=== PATIENT | female | born 1930 | race Caucasian/White ===

== ENCOUNTER 2017-05-17 20:14 | Emergency (ER) | payer OTHER, MEDICARE ==
[~2017-05-17] VITALS: Ht 157.5 cm; Wt 76.7 kg
[~2017-05-17 20:14] MED LIST: ALPRAZOLAM0.25 M1 PO; AMLODIPINE BES2.5 M1 PO; CALTRATE 600 +1 EACH PO; CHILDREN'S ASPI81 M1 PO; CIPRO 500MG TA500 MG PO; CORTISONE28 GM TOP; ESCITALOPRAM OXA5 MG PO; LISINOPRIL20 M1 PO; MEDROL4 M2 PO; PRAVASTATIN SOD40 M2 PO; PREDNISONE 20MG20 MG PO; PRILOSEC 20MG C20 MG PO; TESSALON PERLE100 M1 PO; VITAMIN B-121000 MC3 PO; VITAMIN D31000 UNI2 PO; ZITHROMAX250 M2 PO
--- NOTE | 2017-05-17 20:52 | CT SCAN REPORT ---
EXAMINATION: CT HEAD WITHOUT CONTRAST CLINICAL INFORMATION: Blurry vision CVA. COMPARISON: Prior CT November 2014 TECHNIQUE: Contiguous axial imaging was performed from the skull base to vertex without intravenous administration of contrast. DLP: 601 mGy-cm FINDINGS: There is no evidence of acute intracranial hemorrhage or territorial infarction. No abnormal mass effect or midline shift is seen. Tolbert to white matter differentiation is well preserved. No extra-axial fluid collections are identified. The ventricles are normal in size. There is no abnormal attenuation within the brain parenchyma. The osseous structures and soft tissues are normal. The mastoid air cells and visualized portions of the paranasal sinuses are well aerated. IMPRESSION: No acute intracranial pathology.
[2017-05-17 21:35] LABS: ABSOLUTE BASOPHIL COUNT 0.1 /CUMM (0.0-0.2); ABSOLUTE EOSINOPHIL COUNT 0.3 /CUMM (0.0-0.7); ABSOLUTE GRANULOCYTE CT 4.6 /CUMM (1.4-6.5); ABSOLUTE LYMPH COUNT 2.3 /CUMM (1.2-3.4); ABSOLUTE MONOCYTE COUNT 0.6 /CUMM (0.10-0.60); BASOPHIL % 1.5 % (0.0-2.0); EOSINOPHIL % 3.8 % (0-5); GRANULOCYTE % 58.2 % (42.2-75.2); HEMATOCRIT 44.3 % (37-47); MEAN CORPUSCULAR HGB 29.2 PG (27.0-31.0); MEAN CORPUSCULAR HGB CONC 32.2 G/DL (33.0-37.0); MEAN CORPUSCULAR VOLUME 90.6 FL (81.0-99.0); MEAN PLATELET VOLUME 8.5 FL (7.4-10.4); PLATELET COUNT 297 /CUMM (130-400); RBC DISTRIBUTION WIDTH 14.1 % (11.5-14.5); RED BLOOD CELL CT 4.89 /CUMM (4.20-5.40); WHITE BLOOD CELL COUNT 7.9 /CUMM (4.8-10.8)
[2017-05-17 22:52] VITALS: BP 150/60
--- NOTE | 2017-05-17 22:57 | ED GENERAL ADULT ---
History of Present Illness General Chief Complaint: Eye Problems Stated Complaint: BIBA BLURRED VISION Source: patient Exam Limitations: no limitations Vital Signs & Intake/Output Vital Signs & Intake/Output Vital Signs Date Time Temp Pulse Resp B/P B/P Pulse O2 O2 Flow FiO2 Mean Ox Delivery Rate 05/17 2252 98.0 60 18 150/60 94 Room Air 05/17 2019 97.5 74 20 165/62 98 Room Air ED Intake and Output 05/18 0000 05/17 1200 Intake Total 0 Output Total Balance 0 Intake, Oral 0 Patient 169 lb Weight Weight Reported by Patient Measurement Method Allergies Coded Allergies: No Known Allergies (09/19/16) Reconcile Medications Alprazolam 0.25 MG TABLET 1 TAB PO BIDP PRN ANXIETY (Reported) Amlodipine Besylate 2.5 MG TABLET 1 TAB PO DAILY HEART (Reported) Aspirin (Children's Aspirin) 81 MG TAB.CHEW 2 TAB PO DAILY HEART HEALTH ( Reported) Azithromycin (Zithromax) 250 MG TABLET 1 DP PO AD BRONCHITIS 2 the first day followed by 1 for days 2-5 Benzonatate (Tessalon Perle) 100 MG CAPSULE 1 CAP PO TID PRN COUGH Calcium Carbonate/Vitamin D3 (Caltrate 600 + D Tablet) 600 MG-800 TABLET 1 TAB PO DAILY SUPPLEMENT (Reported) Cholecalciferol (Vitamin D3) 1,000 UNIT TABLET 1 TAB PO DAILY VITAMIN SUPPORT (Reported) Cyanocobalamin (Vitamin B-12) 1,000 MCG TABLET 1 TAB PO DAILY VITAMIN SUPPORT (Reported) Escitalopram Oxalate 5 MG TABLET 1 TAB PO DAILY DEPRESSION (Reported) Lisinopril 20 MG TABLET 1 TAB PO DAILY HEART (Reported) Pravastatin Sodium 40 MG TABLET 1 TAB PO DAILY CHOLESTEROL (Reported) Triage Note: SEE NURSES NOTE Triage Nurses Notes Reviewed? yes Onset: Abrupt Duration: day(s):, constant, continues in ED Timing: recent history Injury Environment: home No Modifying Factors: none HPI: 86-year-old female comes into the emergency room for further evaluation of blurry vision. She reports that her symptoms began this morning when she was watching TV. She reports they progressed throughout the day. Denies any vision loss. All associated headache and lightheadedness. Denies any fever chills cough vomiting shortness of breath. She is able to walk with no difficulty. She reports she was having difficulty reading. She is due to go get her glasses checked very soon. (Gab Avila) Past History Travel History Traveled to [place] past 21 day No Medical History Any Pertinent Medical History? 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 No (Gab Avila) Review of Systems Review of Systems Constitutional: Reports: see HPI. EENTM: Reports: see HPI. Respiratory: Reports: no symptoms. Cardiovascular: Reports: no symptoms. GI: Reports: no symptoms. Genitourinary: Reports: no symptoms. Musculoskeletal: Reports: no symptoms. Skin: Reports: no symptoms. Neurological/Psychological: Reports: no symptoms. Hematologic/Endocrine: Reports: no symptoms. Immunologic/Allergic: Reports: no symptoms. All Other Systems: Reviewed and Negative (Gab Avila) Physical Exam Physical Exam General Appearance: alert, awake Head: atraumatic, normal appearance Eyes: Bilateral: normal appearance, EOMI. Ears, Nose, Throat: normal ENT inspection, hearing grossly normal Neck: normal inspection Respiratory: normal breath sounds, no respiratory distress Cardiovascular: regular rate/rhythm Back: decreased range of motion Extremities: normal inspection, normal capillary refill, normal range of motion, no edema Neurologic/Psych: no motor/sensory deficits, awake, alert, oriented x 3, normal gait, normal mood/affect Skin: intact, normal color Core Measures ACS in differential dx? No CVA/TIA Diagnosis: No Sepsis Present: No Sepsis Focused Exam Completed? No (Gab Avila) Progress Differential Diagnoses I considered the following diagnoses in my evaluation of the patient: CVA, retinal detachment, cataracts, macular degeneration, Plan of Care: Orders Procedure Date/time Status TROPONIN LEVEL 05/17 2031 Complete COMPREHENSIVE METABOLIC PANEL 05/17 2031 Complete CBC WITHOUT DIFFERENTIAL 05/17 2031 Complete EKG 05/17 2031 Active Laboratory Tests 05/17/172118: Anion Gap 11, Estimated GFR > 60, BUN/Creatinine Ratio 18.8, Glucose 101 H, Calcium 9.8, Total Bilirubin 1.0, AST 19, ALT 34, Alkaline Phosphatase 107, Troponin I < 0.01, Total Protein 7.0, Albumin 4.0, Globulin 3.0, Albumin/ Globulin Ratio 1.3, CBC w Diff NO MAN DIFF REQ, RBC 4.89, MCV 90.6, MCH 29.2, MCHC 32.2 L, RDW 14.1, MPV 8.5, Gran % 58.2, Lymphocytes % 28.6, Monocytes % 7.9, Eosinophils % 3.8, Basophils % 1.5, Absolute Granulocytes 4.6, Absolute Lymphocytes 2.3, Absolute Monocytes 0.6, Absolute Eosinophils 0.3, Absolute Basophils 0.1 Diagnostic Imaging: Viewed by Me: CT Scan. Discussed w/RAD: CT Scan. Radiology Impression: PATIENT: PATRICE CHIRINOS PRESENT AGE: 86 PATIENT ACCOUNT NO: [id number] : [birth year] LOCATION: [facility] ORDERING PHYSICIAN: Gab NGUYỄN SERVICE DATE: 05/17/17 EXAM TYPE: CAT - CT HEAD WO IV CONTRAST EXAMINATION: CT HEAD WITHOUT CONTRAST CLINICAL INFORMATION: Blurry vision CVA. COMPARISON: Prior CT November 2014 TECHNIQUE: Contiguous axial imaging was performed from the skull base to vertex without intravenous administration of contrast. DLP: 601 mGy-cm FINDINGS: There is no evidence of acute intracranial hemorrhage or territorial infarction. No abnormal mass effect or midline shift is seen. Tolbert to white matter differentiation is well preserved. No extra-axial fluid collections are identified. The ventricles are normal in size. There is no abnormal attenuation within the brain parenchyma. The osseous structures and soft tissues are normal. The mastoid air cells and visualized portions of the paranasal sinuses are well aerated. IMPRESSION: No acute intracranial pathology. DICTATED BY: Dajuan Harden MD DATE/TIME DICTATED:05/17/172044 ENAMEL APPLIER:ANNALISA DATE/TIME TRANSCRIBED:05/17/172044 CONFIDENTIAL, DO NOT COPY WITHOUT APPROPRIATE AUTHORIZATION. <Electronically signed in Other Vendor System> SIGNED BY: Dajuan Harden MD 05/17/172051 Initial ED EKG: normal sinus rhythm, rate (59) (Gab Avila) Departure Departure Disposition: HOME OR SELF CARE Condition: Stable Clinical Impression Primary Impression: Blurred vision Referrals: Luis ARCOS,Diony Scanlon (PCP/Family) Additional Instructions: Follow-up with your gang drill operator and primary care doctor. Please go over all results of today's visit with your primary care doctor. Contact your primary care doctor to let them know you were here in the emergency room. There may be nonspecific findings which may not be related to your visit today here in the emergency room but may require further evaluation and chronic monitoring by your primary care doctor. If you had a laceration today the chance of foreign body always remains. You should follow-up with your primary care doctor for recheck in 3-5 days for a wound check. If you had an x-ray done there is a chance that a fracture could have been missed on initial read and you should follow-up with your primary care doctor for repeat x-rays if symptoms persist. If your blood pressure was elevated here in the emergency room please have rechecked by [facility] primary care doctor within the next 48. If you were prescribed a narcotic here in the emergency room or any type of controlled substances you're not allowed to drive while taking this medication or operate any type of heavy machinery. Narcotics can make you feel lightheaded dizziness nausea and can cause constipation. You may need to pickers material handlers a stool softener. Thank you for choosing [facility] emergency room. Please return to the emergency room immediately if you have any other concerns worsening of symptoms. Departure Forms: Customer Survey General Discharge Information Comments 05/17/2017 11:57:42 PM Patient clinically looks well. In no apparent distress. Nontoxic appearing. Able to family with no difficulty. Her gross vision year is intact on exam. She called a family member for a ride. Case was discussed with Dr. ordonez. Return if any other concerns worsening symptoms. Reevaluated multiple times. She is asymptomatic at the moment has no complaints of blurry vision. She reports that her vision is at her normal baseline. (Gab Avila) PA/RETAIL STORE ASSISTANT Co-Sign Statement Statement: ED Attending supervision documentation- x I saw and evaluated the patient. I have also reviewed all the pertinent lab results and diagnostic results. I agree with the findings and the plan of care as documented in the PA's/RETAIL STORE ASSISTANT's documentation. [] I have reviewed the ED Record and agree with the PA's/RETAIL STORE ASSISTANT's documentation. [] Additions or exceptions (if any) to the PAs/RETAIL STORE ASSISTANT's note and plan are summarized below: [] (Oscar ARCOS,Cipriano) Critical Care Note Critical Care Note Critical Care Time: non-applicable (Gab Avila)
== END 2017-05-17 22:53 ==
LOC: ERH 20:14
PROVIDERS: Physician Assistant Medical
DX: H53.8 Other visual disturbances (principal)
CPT/HCPCS: 93005; 93010

== ENCOUNTER → 2017-07-18 | Day surgery (SDC) | payer OTHER, MEDICARE ==
[~2017-07-18] VITALS: Ht 154.9 cm; Wt 74.8 kg
[~2017-07-18] MED LIST changes: +AMLODIPINE BESYL5 M1 PO
--- NOTE | 2017-07-18 10:31 | Operative Report ---
Operative/Inv Procedure Report Surgery Date: 07/18/17 Name of Procedure: Cataract extraction with intraocular lens implantation right eye Pre-Operative Diagnosis: Age-related cataract right eye Post-Operative Diagnosis: Same Estimated Blood Loss: none Surgeon/Wheelabrator Operator: Carl ARCOS,Rick Alonzo Anesthesia: local monitored anesthesi Complications: None Operative/Procedure Note Note: Preoperatively the patient was noted to have 20/40 vision in the right eye with a decrease with glare testing down to 20/150. The risks, benefits, and alternatives to surgery were discussed at length with the patient. Informed consent was obtained. The patient was brought to the operating room where the right eye was prepped and draped in the normal sterile fashion. A speculum was placed on the right eye with good exposure. A stab incision was made using a paracentesis blade. Intracameral lidocaine was placed. Viscoelastic was used to form the anterior chamber. A clear corneal incision was made using keratome blade. A continuous curvilinear capsulorrhexis was made using a cystotome needle followed by Utrata forceps. There was no extension of the rhexis. Hydrodissection was performed using balanced salt solution. The cataract was removed using a stop and chop technique. Residual cortex was removed using coaxial irrigation and aspiration. The capsule was polished using irrigation and aspiration and the posterior capsule was cleaned using a balanced salt solution jet. There was no residual lens material inside the eye. The capsular bag was reformed using viscoelastic. An intraocular lens [id number] of power 25.5 was verified and confirmed. It was loaded into an injector and injected into the eye. The lens was placed entirely within the capsular bag. Viscoelastic was evacuated using irrigation and aspiration. The wounds were stromally hydrated and the eye filled to physiologic pressure using balanced salt solution. Intracameral cefuroxime was placed. Speculum was removed and a shield was placed on the eye. The patient was brought to the recovery area without incident. Instructions were given to follow-up the next day for routine postoperative care.
== END ==
LOC: STS 02:49
DX: H25.9 Unspecified age-related cataract (principal); I10 Essential (primary) hypertension
CPT/HCPCS: J2250; V2632

== ENCOUNTER → 2017-08-15 | Day surgery (SDC) | payer OTHER, MEDICARE ==
[~2017-08-15] VITALS: Ht 154.9 cm; Wt 74.8 kg
--- NOTE | 2017-08-15 11:54 | Operative Report ---
Operative/Inv Procedure Report Surgery Date: 08/15/17 Name of Procedure: Cataract extraction with intraocular lens implantation left eye Pre-Operative Diagnosis: Age-related cataract left eye Post-Operative Diagnosis: Same Estimated Blood Loss: none Surgeon/Customer Records Division Supervisor: Carl ARCOS,Rick Alonzo Anesthesia: local monitored anesthesi Complications: None Operative/Procedure Note Note: Preoperatively the patient was noted to have 20/200 vision in the left eye . The risks, benefits, and alternatives to surgery were discussed at length with the patient. Informed consent was obtained. The patient was brought to the operating room where the left eye was prepped and draped in the normal sterile fashion. A speculum was placed on the left eye with good exposure. A stab incision was made using a paracentesis blade. Intracameral lidocaine was placed. Viscoelastic was used to form the anterior chamber. A clear corneal incision was made using keratome blade. A continuous curvilinear capsulorrhexis was made using a cystotome needle followed by Utrata forceps. There was no extension of the rhexis. Hydrodissection was performed using balanced salt solution. The cataract was removed using a stop and chop technique. Residual cortex was removed using coaxial irrigation and aspiration. The capsule was polished using irrigation and aspiration and the posterior capsule was cleaned using a balanced salt solution jet. There was no residual lens material inside the eye. The capsular bag was reformed using viscoelastic. An intraocular lens [id number] of power 24.5 was verified and confirmed. It was loaded into an injector and injected into the eye. The lens was placed entirely within the capsular bag. Viscoelastic was evacuated using irrigation and aspiration. The wounds were stromally hydrated and the eye filled to physiologic pressure using balanced salt solution. Intracameral cefuroxime was placed. Speculum was removed and a shield was placed on the eye. The patient was brought to the recovery area without incident. Instructions were given to follow-up the next day for routine postoperative care.
== END ==
LOC: STS 01:54
DX: H25.9 Unspecified age-related cataract (principal); I10 Essential (primary) hypertension; G47.33 Obstructive sleep apnea (adult) (pediatric)
CPT/HCPCS: J2250; V2632